=== PATIENT | female | born 1940 | race Caucasian/White ===

== ENCOUNTER → 2021-07-14 | Outpatient (CLI) | payer MEDICARE, BC ==
[~2021-07-14] MED LIST: AMBIEN PO; ASPIRIN325 MG PO; CARVEDILOL12.5 MG PO; DEXILANT60 MG; DICLOFENAC SODI75 MG PO; FERROUS SULFAT325 M1; GABAPENTIN300 MG PO; LIPITOR; LISINOPRIL; LORAZEPAM INJ 2 MG/ML VIAL ONE; LOVAZA1 GM PO; METFORMIN HCL500 M1; NEXIUM40 MG PO; NITROSTAT0.4 MG; OSCAL PO; PANTOPRAZOLE SO40 MG PO; PLAVIX75 MG PO; RAMIPRIL10 MG PO; RANEXA500 MG PO; SIMVASTATIN40 MG PO; VITAMIN C PO; VITAMIN C500 MG PO; VITAMIN E400 UNI3 PO; ZANTAC300 MG; ZYRTEC10 M3 PO; [UNRECOGNIZED DRUG - OTHER]
== END ==
LOC: MRI 09:02
PROVIDERS: ATTEND Family Medicine
DX: M48.061 Spinal stenosis, lumbar region without neurogenic claudication (principal); M54.16 Radiculopathy, lumbar region
CPT/HCPCS: 72148; J2060

== ENCOUNTER → 2021-09-22 | Outpatient (CLI) | payer MEDICARE, BC ==
[~2021-09-22] MED LIST changes: -LORAZEPAM INJ 2 MG/ML VIAL ONE
== END ==
LOC: CT 15:40
PROVIDERS: ATTEND Neurological Surgery
DX: M48.061 Spinal stenosis, lumbar region without neurogenic claudication (principal); Z98.890 Other specified postprocedural states; M46.46 Discitis, unspecified, lumbar region
CPT/HCPCS: 72131

== ENCOUNTER → 2021-09-24 | Outpatient (CLI) | payer MEDICARE, BC ==
[~2021-09-24] MED LIST changes: +LORAZEPAM INJ 2 MG/ML VIAL ONE
== END ==
LOC: MRI 10:15
PROVIDERS: ATTEND Neurological Surgery
DX: M48.061 Spinal stenosis, lumbar region without neurogenic claudication (principal); Z98.890 Other specified postprocedural states; M46.46 Discitis, unspecified, lumbar region
CPT/HCPCS: 72148; J2060